=== PATIENT | male | born 1975 | race Caucasian/White ===

== ENCOUNTER 2024-01-14 21:12 | Inpatient (IN) | payer OTHER, SELFPAY ==
[2024-01-14 17:04] VITALS: BP 156/89
--- NOTE | 2024-01-14 17:19 | ED.GENMED ---
History of Present Illness
General
Chief Complaint: Chest Problem
Source: patient
Time Seen by Provider: 01/14/24 17:11
History of Present Illness
History of Present Illness:
48yoM with a history of polycystic kidney disease s/p renal transplant in 2017 on tacrolimus, mycophenolate, and prednisone presenting for evaluation of a fever. Patient has been having URI symptoms for the past 8 days or so including a cough. He
started to have chest pain today which is left-sided and radiates to the back as well as shortness of breath. He also developed a fever today with a Tmax of 101. He has a history of pneumonia and is worried that he has this again. No vomiting or
diarrhea. Urination has been normal.
Past History
Past History
ED Past Medical History: Other (Kidney transplant)
ED Past Surgical History: Other (Transplant kidney)
Social History
Tobacco: Non-smoker
Alcohol: None
Drug: None
Personal:
Living: with family
Employment: Employed
Family History
Family History: Other (Polycystic kidney)
Phy Exam
Physical Exam
Physical Exam:
Rigors noted on exam. Ill appearing, non-toxic
General Physical Exam
General age: appears stated age
General Skin: warm and dry
General Habitus: normal
General Mental: alert
ENT Exam
ENT Exam: normocephalic
Cardiovascular Exam
Cardiovascular Exam: no murmur and tachycardia
Pulmonary Exam
Pulmonary Exam: no respiratory distress, no stridor, no wheezing and other (Rales in L lower lung base)
Neurological Exam
Neurological Exam: alert
Margarette Coma Scale
Eye Opening: Spontaneous
Verbal Response: Oriented
Motor Response: Obeys Commands
GCS Total Score: 15
Skin Exam
Skin Exam: normal color and warm/dry
Psychiatric Exam
Psychiatric Exam: normal mood/affect
Sepsis
Sepsis Screening
Sepsis Assessment: Sepsis
Sepsis Screen
Sepsis Screen: Sepsis
Date: 01/14/24
Time: 19:05
Course
Orders/Labs/Results
Orders:
Orders
01/14/24 17:00
ECG [Electrocardiogram (*1)] Urgent
Reason for Study: Chest Pain
Other Reason for Exam: dyspnea
01/14/24 17:01
EKG- Treatment ONCE
01/14/24 17:18
Cardiac Monitoring- Treatment ONCE
Acetaminophen [Tylenol] 1,000 mg PO NOW STA
CR Chest - 2 Views Urgent
Comment:
Reason For Exam: Cough, fever
01/14/24 17:26
Blood Culture Q30M
TEJA Source: Blood/Venous
Specimen Description:
Blood Culture Q30M
TEJA Source: Blood/Venous
Specimen Description:
01/14/24 17:27
COVID-19 Antigen Urgent
Source: Nasal Swab
Complete Blood Count/With Diff Urgent
Comprehensive Metabolic Panel Urgent
Lactate Level [Lactic Acid] Urgent
Troponin I Urgent
Influenza A+B Rapid Molecular Urgent
TEJA Source: Nasal Swab
Specimen Description:
0.9% Sodium Chloride 500 ml [Nss] 500 ml IV BOLUS
01/14/24 17:59
0.9% Sodium Chloride 1000 ml [Nss] 1,000 ml IV BOLUS
01/14/24 18:42
Cefepime HCl [Maxipime] 2,000 mg IV NOW STA
Vancomycin [Vancocin] 2,000 mg 0.9% Sodium Chloride 500 ml [Nss] 500 ml IV NOW
Abnormal Lab Results
01/14/24
17:27
RBC 4.57 L 10^6/uL
(4.70-6.10)
MCH 31.5 H pg
(27.0-31.0)
Plt Count 129 L 10^3/uL
(130-400)
MPV 10.6 H fL
(7.4-10.4)
Absolute Neuts (auto) 9.3 H 10^3/uL
(1.4-6.5)
Absolute Lymphs (auto) 0.5 L 10^3/uL
(1.2-3.4)
Absolute Monos (auto) 0.8 H 10^3/uL
(0.1-0.6)
Neutrophils % 87.7 H %
(42.2-75.2)
Lymphocytes % 4.5 L %
(20.5-51.1)
Potassium 5.3 H mmol/L
(3.5-5.1)
BUN 26 H mg/dl
(9-20)
Creatinine 1.5 H mg/dL
(0.7-1.3)
Glucose 107 H mg/dl
(70-99)
Total Bilirubin 1.6 H mg/dl
(0.2-1.3)
01/14/24 17:27
01/14/24 17:27
Vital Signs
Initial and Last Documented VS:
Initial Vital Signs
Temp Pulse Resp BP Pulse Ox
100.5 F H 110 16 156/89 98
01/14/24 17:04 01/14/24 17:04 01/14/24 17:04 01/14/24 17:04 01/14/24 17:04
Last Documented Vital Signs
Temp Pulse Resp BP Pulse Ox
100.5 F H 91 22 156/89 96
01/14/24 17:04 01/14/24 17:37 01/14/24 17:37 01/14/24 17:04 01/14/24 17:37
MDM/Problems Addressed
Differential Diagnosis Includes:
48yoM here with fever, SOB, and L sided chest pain that began today. Started with URI symptoms 8 days ago. Hx of renal transplant. He is febrile to 100.5 on arrival with a HR of 110. He is having rigors on exam. +Rales in L lower lung base.
Differential diagnosis includes but is not limited to: viral illness, bronchitis, pneumonia, sepsis
Initial ED plan: Check septic workup including blood cultures, lactate, COVID/flu swab, and CXR. Will also check EKG and troponin. Tylenol and fluid bolus for symptoms.
*EKG
Interpreted by ED Provider?: Yes
EKG Intrepretation Date: 01/14/24
Heart Rate: 82
Rate: normal
Rhythm: sinus
[place]: normal axis
Interval: normal interval
QRS Pattern: normal QRS
Ischemia: no ischemia
*Critical Care Note
Total Time (30-74mins, 75-104mins- exclusive of procedures): Not Applicable
Update Note
Update Note:
White count is normal but left shift is noted. Lactate WNL. Creatinine 1.5 which is stable from last hospitalization in 2019. COVID/flu negative. No ischemic changes on EKG and troponin WNL. Opacity in the L mid/lower lung noted that is suspicious
for pneumonia. Given immunocompromised state, will admit. IV cefepime and vancomycin ordered.
ED Attending Note
-
Portions of this chart may have been created with voice recognition software.� Occasional wrong word or��sound alike� substitutions may have occurred due to the inherent limitations of voice recognition software.
Discharge Plan
Departure
Patient Disposition: Admit
Date of Disposition: 01/14/24
Time of Disposition: 19:03
Presentation/result/management discussed w/ accepting MD/DO: Hospitalist
Discharge Problem:
Pneumonia
Prescriptions:
No Action
prednisone 5 MG tablet
5 mg PO DAILY@0900
acetaminophen 325 MG tablet
650 mg PO Q4HPRN PRN (Reason: mild pain/fever)
mycophenolate mofetil 250 MG capsule
250 mg PO BID@0900,2100
tacrolimus 1 MG capsule
2 mg PO DAILY@899
tacrolimus 1 mg capsule
1 mg PO DAILY@2099
olmesartan 20 mg tablet
20 mg PO DAILY@899
cholecalciferol (vitamin D3) 25 mcg (1,000 unit) Tablet
25 mcg PO DAILY@2099
octreotide,microspheres [Sandostatin LAR Depot] 20 mg Suspension,Extended Rel Recon
40 mg IM Q4W
Referrals:
PRIVATE,PHYSICIAN [Family Provider] -
Interventions
Interventions:
*Risk Screen - Suicide Last Done: 01/14/24 17:04
*General Assessment Last Done: 01/14/24 17:04
*Neglect/Abuse Screening Last Done: 01/14/24 17:04
ED- Cardiac Assessment Last Done: 01/14/24 17:28
ED- Pulmonary Assessment Last Done: 01/14/24 17:28
Discharge Date and Time
Print Language: SAUDI ARABIAN
[2024-01-14] MEDS: TYLENOL 1000 MG PO (17:28)
[2024-01-14 17:32] VITALS: BMI 23.2
[2024-01-14 17:46] LABS: % Basophils 0.2 % (0-2); % Eosinophils 0.2 % (0-6); % Immature Granulocytes 0.3 % (0-0.5); % Lymphocytes 4.5 % (20.5-51.1); % Monocytes 7.1 % (1.7-9.3); % Neutrophils 87.7 % (42.2-75.2); Absolute Lymphocytes 0.5 10^3/uL (1.2-3.4); Absolute Monocytes 0.8 10^3/uL (0.1-0.6); Absolute Neutrophils 9.3 10^3/uL (1.4-6.5); Hematocrit 41.3 % (39.0-52.0); Hemoglobin 14.4 g/dL (13.0-18.0); Mean Corp Hgb Conc. 34.9 g/dL (33.0-37.0); Mean Corpuscular Hgb 31.5 pg (27.0-31.0); Mean Corpuscular Volume 90.4 fL (80.0-94.0); Mean Platelet Volume 10.6 fL (7.4-10.4); Nucleated Red Blood Cells % 0 % (-); Platelet Count 129 10^3/uL (130-400); Red Blood Cell Count 4.57 10^6/uL (4.70-6.10); Red Cell Dist. Width 12.2 % (11.5-14.5); White Blood Cell Count 10.5 10^3/uL (4.8-10.8)
[2024-01-14 17:54] LABS: Lactic Acid 1.5 mmol/L (0.7-2.0)
[2024-01-14 17:57] LABS: ALT (SGPT) 21 U/L (0-50); AST (SGOT) 27 U/L (17-59); Albumin 4.6 g/dl (3.5-5.0); Alkaline Phosphatase 112 U/L (38-126); Blood Urea Nitrogen 26 mg/dl (9-20); Calcium 9.7 mg/dl (8.4-10.2); Carbon Dioxide 24 mmol/L (22-30); Chloride 102 mmol/L (98-107); Estimated Creatinine Clearance 76 ml/min; Glucose 107 mg/dl (70-99); Potassium 5.3 mmol/L (3.5-5.1); Sodium 139 mmol/L (135-145); Total Bilirubin 1.6 mg/dl (0.2-1.3); Total Protein 7.6 g/dl (6.3-8.2); eGFR 56.37
[2024-01-14 18:04] LABS: COVID-19 Antigen Negative (Negative)
[2024-01-14 18:06] LABS: Troponin I < 0.012 ng/ml
[2024-01-14] MEDS: NSS 1000 IV ×2 (18:17→22:06)
[2024-01-14] MEDS: MAXIPIME 2000 MG IV (19:50)
--- NOTE | 2024-01-14 20:06 | HPS.HSE ---
Family Physician
-
Family Physician: PHYSICIAN PRIVATE
Chief Complaint
-
Shortness of breath and chest pain
History of Present Illness
This is a 48-year-old with a history of hypertension and polycystic kidney disease status post kidney transplant in 2017 on antirejection medications who presents to the emergency department with worsening shortness of breath and a fever after about
a week of upper respiratory symptoms.
Patient reported that he has been having rhinorrhea and nonproductive cough for several days which appeared to have been improving up until today. Today he suddenly developed severe fatigue felt febrile and had persistent chest discomfort which he
describes as pain in the bilateral subcostal areas. The pain is present even without coughing. He reports that he still does not have a productive cough. He however has dyspnea on exertion. He denies any lower extremity swelling. He denies any
palpitations. He denies any lightheadedness or dizziness. Oral intake has been decreased slightly. He denies any nausea vomiting or diarrhea. No known sick contacts. No recent travels.
In the ED patient was febrile to 100.5 �F, blood pressure was stable at 136/89 and was at 96% on room air. His chest x-ray shows a opacity in the left lower lobe concerning for pneumonia. There was no leukocytosis. He does have a known
thrombocytopenia with a platelet count of 129 similar to prior. Chemistries were stable with a creatinine of 1.5 unchanged from prior. K was 5.3. COVID and influenza negative.
Medical History
Past Medical History
Past Medical History: Reports HTN and Renal Failure (Polycystic kidney disease)
Additional Past Medical History:
Polycystic liver
Past Surgical History: Reports Other (Living donor Kidney Tx 2017, removal of [place] kidneys)
Social History
Tobacco: Non-smoker
Alcohol: None
Drug: None
Personal:
Living: With Family
Employment: Employed
Family History
Family History: Other (Polycystic kidney disease)
Allergies / Home Medications
Allergies reflects when Allergies were last updated in [facility].
Home Medications with original date entered in [facility]
Allergy/Medication List:
Allergies
Allergy/AdvReac Type Severity Reaction Status Date / Time
lisinopril Allergy Unknown Verified 03/30/19 19:50
Home Medications
acetaminophen 325 mg tablet 650 mg PO Q4HPRN PRN mild pain/fever 03/30/19
mycophenolate mofetil 250 mg capsule 250 mg PO BID@09,209903/30/19
prednisone 5 mg tablet 5 mg PO DAILY@89903/30/19
tacrolimus 1 mg capsule, immediate-release 2 mg PO DAILY@89903/30/19
cholecalciferol (vitamin D3) 25 mcg (1,000 unit) tablet 25 mcg PO DAILY@209901/14/24
octreotide,microspheres 20 mg intramuscular susp, extended release (Sandostatin LAR Depot) 40 mg IM Q4W 01/14/24
olmesartan 20 mg tablet 20 mg PO DAILY@89901/14/24
tacrolimus 1 mg capsule, immediate-release 1 mg PO DAILY@209901/14/24
Review of Systems
-
History Source: Patient
Constitutional: Reports Fever and Fatigue
EENT: Reports No Symptoms
Respiratory: Reports No Symptoms
Cardiac: Reports No Symptoms
Abdomen/GI: Reports No Symptoms
: Reports No Symptoms
Musculoskeletal: Reports No Symptoms
Skin: Reports No Symptoms
Neurological: Reports No Symptoms
Endocrine: Reports No Symptoms
Hematologic/Lymphatic: Reports No Symptoms
Psych: Reports No Symptoms
Physical Exam
Vital Signs
Vital Signs
Temp Pulse Resp BP Pulse Ox
100.5 F H 80 21 156/89 98
01/14/24 17:04 01/14/24 19:45 01/14/24 19:45 01/14/24 17:04 01/14/24 19:45
Physical Exam
General: Well Developed, Well Nourished, No Apparent Distress, Comfortable and Fever
HEENT: NormoCephalic, Anicteric, Moist mucous membranes and Atraumatic
Respiratory: Crackles (left basilar crackles)
Cardiac: S1/S2 and Regular Rhythm
GI: Soft, Non Tender, Non Distended and Normal Bowel Sounds
Rectal: Brown
Genito-urinary: Deferred by me
Musculoskeletal: No Clubbing, No Cyanosis and No Edema
Skin: Warm
Neuro: AO x 3
Hematologic/Lymphatic: No Lymphadenopathy
Psych: Calm
Laboratory Results
-
01/14/24 17:27
01/14/24 17:27
Laboratory Results
Lactic Acid 1.5 mmol/L (0.7-2.0) 01/14/24 17:27
Total Bilirubin 1.6 mg/dl (0.2-1.3) H 01/14/24 17:27
AST 27 U/L (17-59) 01/14/24 17:27
ALT 21 U/L (0-50) 01/14/24 17:27
Alkaline Phosphatase 112 U/L (38-126) 01/14/24 17:27
Troponin I < 0.012 ng/ml 01/14/24 17:27
Data Reviewed
-
Diagnostic Radiology: Image Personally Visualized and interpreted and Report Reviewed by me
Lab Data: Labs Reviewed by me
Old Records: Reviewed
Impression/Plan
-
IMPRESSION:
48-year-old with renal failure status post living donor transplant 2017 on tacrolimus CellCept and prednisone presents to the emergency department with fevers and shortness of breath found to have a left lower lobe pneumonia. Nausea requirement at
this time. Hemodynamically stable.
PLAN:
1. PNA - Complex PNA due to immunosuppression. No recent hospitalizations or abx use. No prior cultures.
- admit to med/surg
- blood cultures sent, check legionella ag
- IV fluids o/n
- MRSA testing
- continue Vanc pending mrsa swab
- cefepime 2g q 12 for now
- incentive spirometry
- ID consult
2. Renal Failure - PKD s/p LD KTx 2017. Cr 1.5 which is baseline for him.
- Continue tac 2 am 1 pm
- Continue cellcept 250 bid for now, consider d/c if decompensating
- continue prednisone 5 daily
- renal consult.
3.Hyperkalemia - MIld elevation in K to 5.3, on Olmesartan and Tacrolimus, baseline around 4.8
- IV fluids overnight for now and repeat in AM
- low K diet
4. HTN
- continue olmesartan 20 for now
DVT PPX - lovenox sq
Code status - full code
[2024-01-14] MEDS: VANCOCIN 540 MG IV (20:42)
[2024-01-14 21:44] VITALS: BP 136/78
[2024-01-14 21:46] VITALS: BMI 23.2
--- NOTE | 2024-01-14 21:55 | PHA.VAN.IN ---
Assessment
- Assessment
Renal Function: Other (04/02/19 SCR = 1.9)
Concomitant Antimicrobials: CEFEPIME
- Previous Dosing Experience
Previous Regimen: NONE
Plan
- Plan
Initial / Loading Dose: 2GM
Maintenance Regimen: DOSING BY RANDOM LEVELS
Monitoring: RANDOM VANCOMYCIN LEVEL 01/15/24 AM
Pharmacokinetics Vancomycin I
- -
Patient Age: 48
Patient Sex: Male
Vancomycin Day #: 1
Indication: Pulmonary/Respiratory
Requesting Provider: MILY
Height / Weight:
Height 6 ft 6 in
Actual Weight 91.081 kg
Pertinent Past Medical History: KIDNEY TRANSPLANT 2016
- Vital Signs / Lab Results
Temp Pulse Resp BP Pulse Ox
97.7 F 77 18 136/78 96
01/14/24 21:44 01/14/24 21:44 01/14/24 21:44 01/14/24 21:44 01/14/24 21:44
Lab Results - Hematology
01/14/24
17:27
WBC 10.5
Lab Results - Chemistry
01/14/24
17:27
BUN 26 H
Creatinine 1.5 H
Estimated Creat Clear 76
Albumin 4.6
01/14/24
17:27
Lactic Acid 1.5
Microbiology Results
01/14/24 17:27 Influenza Types A & B (JOHN) - Final
Nasal Swab Negative for Influenza A & B, NAAT
Negative results must be combined with clinical observations
and patient history.
Nucleic Acid Amplification test (NAAT)performed on the
[employer] platform.
[2024-01-14] MEDS: VITAMIN D3 (cholecalciferol) PO (22:05)
[2024-01-14 23:25] VITALS: BP 116/68
--- NOTE | 2024-01-15 01:36 | PTCARENOTE ---
Received pt from ED via stretcher with belongings. Medsurg orders. Afebrile, HR 77, RR 18, BP 136/78, pox 96% room air. No c/o pain.
IV Vancomycin infusing through RAC. PMH, medications and plan of care reviewed by this RN and pt. Pt oriented to room. Call marie within reach.
[2024-01-15 07:00] VITALS: BP 130/82
[2024-01-15 07:03] LABS: Vancomycin Random 16.1 ug/ml
[2024-01-15 07:09] LABS: Hematocrit 35.9 % (39.0-52.0); Hemoglobin 12.3 g/dL (13.0-18.0); Mean Corp Hgb Conc. 34.3 g/dL (33.0-37.0); Mean Corpuscular Hgb 31.8 pg (27.0-31.0); Mean Corpuscular Volume 92.8 fL (80.0-94.0); Red Blood Cell Count 3.87 10^6/uL (4.70-6.10); White Blood Cell Count 7.3 10^3/uL (4.8-10.8)
[2024-01-15 07:15] LABS: Blood Urea Nitrogen 24 mg/dl (9-20); Calcium 8.5 mg/dl (8.4-10.2); Carbon Dioxide 23 mmol/L (22-30); Chloride 107 mmol/L (98-107); Estimated Creatinine Clearance 81 ml/min; Glucose 111 mg/dl (70-99); Potassium 4.8 mmol/L (3.5-5.1); Sodium 140 mmol/L (135-145); eGFR > 60.00
[2024-01-15] MEDS: DELTASONE 5 MG PO (07:40)
[2024-01-15] MEDS: BENICAR 20 MG PO (07:40)
[2024-01-15] MEDS: PROGRAF 2 MG PO (07:40)
[2024-01-15] MEDS: MAXIPIME 2000 MG IV (07:42)
[2024-01-15] MEDS: STERILE WATER FOR INJECTION 10 ML IV ×2 (07:43→17:21)
[2024-01-15] MEDS: CELLCEPT 250 MG PO ×2 (07:43→18:37)
--- NOTE | 2024-01-15 07:55 | PHA.VAN.FU ---
Vancomycin Assessment / Plan
- Assessment
Renal Function: Stable (1.5- 1.4)
WBC's are: WNL
In the past 24 hrs, patient has been: Febrile (100.5 01/13 @ 17:04)
Concomitant Antimicrobials: cefepime
- Assessment - Therapeutic Drug Monitoring
Random Level: 16.1 ~ 10 hours post initial 2000 mg LD
- Dosing Plan
Continue: dosing by random level
Dosing by Level: Re-dose today (1250 mg x 1 (~14 mg/kg) to be given at noon today)
- Monitoring Plan
Random Level: repeat random level AM 01/15
- Follow Up
Pharmacy will continue to follow.
Vancomycin Follow UP
- -
Patient Age: 48
Patient Sex: Male
Vancomycin Day #: 2
Indication: Pulmonary/Respiratory
Requesting Provider: MILY
Height / Weight:
Height 6 ft 6 in
Actual Weight 91.081 kg
Pertinent Past Medical History: KIDNEY TRANSPLANT 2016
- Vital Signs / Lab Results
Temp Pulse Resp BP Pulse Ox
99.0 F 72 17 116/68 97
01/14/24 23:25 01/14/24 23:25 01/14/24 23:25 01/14/24 23:25 01/14/24 23:25
Lab Results - Hematology
01/14/24 01/15/24
17:27 06:39
WBC 10.5 7.3
Lab Results - Chemistry
01/14/24 01/15/24
17:27 06:39
BUN 26 H 24 H
Creatinine 1.5 H 1.4 H
Estimated Creat Clear 76 81
Albumin 4.6
01/14/24
17:27
Lactic Acid 1.5
Microbiology Results
01/14/24 17:27 Influenza Types A & B (JOHN) - Final
Nasal Swab Negative for Influenza A & B, NAAT
Negative results must be combined with clinical observations
and patient history.
Nucleic Acid Amplification test (NAAT)performed on the
[employer] platform.
Therapeutic Drug Monitoring
Random Vancomycin 16.1 ug/ml 01/15/24 06:39
[2024-01-15 08:12] LABS: Platelet Count 93 10^3/uL (130-400)
--- NOTE | 2024-01-15 11:24 | W.PN.HOSP.TC ---
Today's Communication/Plan
-
Monitor vital signs see plan
Continue with antibiotics
MRSA pending
Follow blood culture
Continue with immunosuppressive medications
Monitor BMP
Follow fever curve
Assessment / Plan
Assessment / Plan
General: Well Developed, Well Nourished, No Apparent Distress, Comfortable and Fever
HEENT: NormoCephalic, Anicteric, Moist mucous membranes and Atraumatic
Respiratory: Crackles (left basilar crackles)
Cardiac: S1/S2 and Regular Rhythm
GI: Soft, Non Tender, Non Distended and Normal Bowel Sounds
Musculoskeletal: No Edema
Skin: Warm
Neuro: AO x 3
Psych: Calm
PNA - Complex PNA due to immunosuppression. No recent hospitalizations or abx use. No prior cultures.
sepsis (fever, tachypnea) 2/2 above
- blood cultures sent, check legionella ag neg; flu, covid neg
CXR with left mid/lower lung pneumonia
cw vanc and cefipime for now; MRSA pending
- incentive spirometry
- ID following
hx of Renal Failure - PKD s/p LD KTx 2017. Cr 1.5 which is baseline for him.
- Continue tac 2 am 1 pm
- Continue cellcept 250 bid for now, consider holding if decompensating
- continue prednisone 5 daily
follows up with nephrology [facility]
tac level pending
Hyperkalemia - MIld elevation in K to 5.3 on admission, on Olmesartan and Tacrolimus
now improving; monitor
Thrombocytopenia
monitor
HTN
- continue olmesartan 20 for now
DVT PPX - lovenox sq
Code status - full code
Anticipated Discharge: 24 - 48 hours
Subjective/Interval History
-
Date of Service: January 15, 2024
denies pain
Objective Data
-
Labs:
Laboratory Results
01/15/24
06:39
WBC 7.3
Hgb 12.3 L
Hct 35.9 L
Plt Count 93 L D
Sodium 140
Potassium 4.8
Chloride 107
Carbon Dioxide 23
BUN 24 H
Creatinine 1.4 H
Glucose 111 H
Calcium 8.5
Vital Signs:
Vital Signs
Temp Pulse Resp BP Pulse Ox
98.6 F 73 16 130/82 93
01/15/24 07:00 01/15/24 07:00 01/15/24 07:00 01/15/24 07:00 01/15/24 07:00
I&O
01/14/24 01/15/24 01/16/24
06:59 06:59 06:59
Intake Total 1530 / 1530
Balance 1530 / 1530
--- NOTE | 2024-01-15 11:47 | CON.ID ---
Consultation
-
Date/Time Consultation Requested: 01/14/2024 2202
Date/Time Consultation Performed: 01/15/2024 1130
Requesting Provider: Dr Marin
Performing Provider: Dr. Wilcox
Reason for Consultation: Pneumonia
Chief Complaint / Past History
History of Present Illness
Garland Beasley is a 48-year-old man with a significant past medical history of PCKD and renal transplant (2016) being evaluated regarding pneumonia. History is obtained from chart review, along with patient interview.
The patient reports that he was in his usual state of health until approximately 8 days ago when he began to have URI symptomatology with a noted cough. He notes that his child recently also had symptomatology of an upper respiratory tract
infection, but is now fine.
Yesterday he developed some pleuritic type chest pain, along with increasing shortness of breath and some chills. He reports that he may have been feeling quite ill over the past week, but has had deadlines at work and thus he 'powered through'.
He notes scant spit, and possibly it was yellowish or reddish in color. He denies any headache. At present he notes only mild chest pain with some respirations. He denies any abdominal pain, nausea, vomiting or diarrhea.
He reports no issues in regards to his transplant, and is closely followed by his transplant surgeon (Dr. Mcpherson) at [facility].
Past History
Additional Past Medical History:
PCKD
Additional Past Surgical History:
Renal transplant (2017)
Allergy History:
lisinopril Allergy (Verified 03/30/19 19:50)
Unknown
Medications Reviewed: Yes
Current Antibiotics:
Cefepime
Vancomycin
Social History
Tobacco: Non-Smoker
Alcohol: None
Drug: None
Personal:
Living: With Family
Employment: Employed
Family History
Family History: Not Pertinent
Review of Systems
Vital Signs
Temp Pulse Resp BP Pulse Ox
98.6 F 73 16 130/82 93
01/15/24 07:00 01/15/24 07:00 01/15/24 07:00 01/15/24 07:00 01/15/24 07:00
Physical Exam
Physical Exam
Constitutional: No Acute Distress, Well Developed, Comfortable and Non-toxic
Head: Normocephalic
Eyes: Pupils Equal, Pupils Round, No Conjunctival Hemorrhage and Sclera Anicteric
Oral: No Thrush and No Ulcers
Cardiovascular: Regular Rate and S1/S2; Negative S3/S4
Pulmonary: Clear; Negative Wheezes, Rales or Rhonchi
Gastrointestinal: Soft, Non Tender and Non Distended
Extremities: Negative Edema, Cyanosis or Erythema
Skin: Warm and Dry; Negative Rash or Jaundice
Neurological: Awake and Alert
Psychological: Calm
Lab / Diagnostic Study Results
01/15/24 06:39
01/15/24 06:39
Abs Immat Gran (auto) 0.0 10^3/uL (0-0.05) 01/14/24 17:27
Absolute Neuts (auto) 9.3 10^3/uL (1.4-6.5) H 01/14/24 17:27
Absolute Lymphs (auto) 0.5 10^3/uL (1.2-3.4) L 01/14/24 17:27
Absolute Monos (auto) 0.8 10^3/uL (0.1-0.6) H 01/14/24 17:27
Absolute Basos (auto) 0.0 10^3/uL (0-0.2) 01/14/24 17:27
Immature Gran % 0.3 % (0-0.5) 01/14/24 17:27
Neutrophils % 87.7 % (42.2-75.2) H 01/14/24 17:27
Lymphocytes % 4.5 % (20.5-51.1) L 01/14/24 17:27
Monocytes % 7.1 % (1.7-9.3) 01/14/24 17:27
Eosinophils % 0.2 % (0-6) 01/14/24 17:27
Basophils % 0.2 % (0-2) 01/14/24 17:27
Lactic Acid 1.5 mmol/L (0.7-2.0) 01/14/24 17:27
Procalcitonin 0.90 ng/ml (0.0-0.25) H 01/15/24 06:39
Microbiology Results
Micro:
01/15/24 00:54 Legionella Urinary Antigen - Final
Urine Negative for Legionella pneumophila Serogroup 1 antigen.
A negative result does not rule out the possiblity of
Legionella infection due to other serogroups or species of
Legionella. Clinical correlation is recommended.
01/15/24 00:54 MRSA Screen - Pending
Nose
01/14/24 17:27 Influenza Types A & B (JOHN) - Final
Nasal Swab Negative for Influenza A & B, NAAT
Negative results must be combined with clinical observations
and patient history.
Nucleic Acid Amplification test (NAAT)performed on the
[employer] platform.
01/14/24 17:26 Blood Culture - Pending
Blood/Venous
01/14/24 17:26 Blood Culture - Pending
Blood/Venous
Imaging:
01/14/2024 CXR (2 view): Low lung volumes are noted with an opacity projecting over the left mid/lower lung. No pleural effusion or pneumothorax. Please see full dictation for additional detail. Film personally viewed.
Assessment / Plan
Suspected pneumonia
Upper respiratory tract infection
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
Hx PCKD with renal transplant (2017)
Recommendations:
Consolidate antibiotics to ceftriaxone and doxycycline.
Follow white count temperature curve. May be able to transition to oral cefdinir in the next 24 to 48 hours.
Follow white count and temperature curve.
Continue with supportive measures.
[2024-01-15] MEDS: VANCOCIN 275 MG IV (12:05)
[2024-01-15] MEDS: VIBRAMYCIN 100 MG PO ×2 (12:06→19:58)
--- NOTE | 2024-01-15 14:51 | CM ---
Reviewed chart, met with patient to obtain information for assessment. Patient stated that he lives in a two story home with his and three children who are 11, 8, and 6. Patient is independent with his ADLs, personal care, dressing and bathing.
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 Patient denied any DME. He can drive and can get to his appointments and does all of his shopping.
Patient has never had VN services.
He has a prescription plan and uses, [facility] in [place] for all of his medications.
Patient's PCP is, not listed.
Patient stated that functionally, he feels that he is at baseline and would like to return home when he is stable for discharge.
Plan: Case management will continue to follow and assist with discharge planning. Home when cleared for discharge.
[2024-01-15 15:00] VITALS: BP 118/74
[2024-01-15] MEDS: ROCEPHIN 1000 MG IV (17:21)
[2024-01-15] MEDS: PROGRAF 1 MG PO (18:38)
[2024-01-15] MEDS: VITAMIN D3 (cholecalciferol) 25 MCG PO (18:42)
[2024-01-15 23:00] VITALS: BP 119/75
[2024-01-16 07:00] VITALS: BP 118/78
[2024-01-16] MEDS: VIBRAMYCIN 100 MG PO (07:32)
[2024-01-16] MEDS: PROGRAF 2 MG PO (07:32)
[2024-01-16] MEDS: DELTASONE 5 MG PO (07:32)
[2024-01-16] MEDS: BENICAR 20 MG PO (07:32)
[2024-01-16] MEDS: CELLCEPT 250 MG PO (07:33)
[2024-01-16 09:13] LABS: % Basophils 0.1 % (0-2); % Eosinophils 1.4 % (0-6); % Immature Granulocytes 0.4 % (0-0.5); % Lymphocytes 7.9 % (20.5-51.1); % Monocytes 7.1 % (1.7-9.3); % Neutrophils 83.1 % (42.2-75.2); Absolute Eosinophils 0.1 10^3/uL (0-0.7); Absolute Lymphocytes 0.6 10^3/uL (1.2-3.4); Absolute Monocytes 0.5 10^3/uL (0.1-0.6); Hematocrit 36.1 % (39.0-52.0); Hemoglobin 12.3 g/dL (13.0-18.0); Mean Corp Hgb Conc. 34.1 g/dL (33.0-37.0); Mean Corpuscular Hgb 31.9 pg (27.0-31.0); Mean Corpuscular Volume 93.8 fL (80.0-94.0); Mean Platelet Volume 10.6 fL (7.4-10.4); Nucleated Red Blood Cells % 0 % (-); Platelet Count 97 10^3/uL (130-400); Red Blood Cell Count 3.85 10^6/uL (4.70-6.10); White Blood Cell Count 7.2 10^3/uL (4.8-10.8)
[2024-01-16 09:18] LABS: Blood Urea Nitrogen 23 mg/dl (9-20); Calcium 8.7 mg/dl (8.4-10.2); Carbon Dioxide 25 mmol/L (22-30); Chloride 103 mmol/L (98-107); Estimated Creatinine Clearance 81 ml/min; Glucose 199 mg/dl (70-99); Potassium 4.6 mmol/L (3.5-5.1); Sodium 139 mmol/L (135-145); eGFR > 60.00
--- NOTE | 2024-01-16 10:39 | W.PN.HOSP.TC ---
Today's Communication/Plan
-
Monitor vital signs
see plan
On room air, feeling better
Discharge on cefdinir and Doxy
Discussed with infectious disease
Time of discharge 38 minutes
Assessment / Plan
Assessment / Plan
General: Well Developed, Well Nourished, No Apparent Distress, Comfortable and Fever
HEENT: NormoCephalic, Anicteric, Moist mucous membranes
Respiratory: CTA,no wheezing
Cardiac: S1/S2 and Regular Rhythm
GI: Soft, Non Tender, Non Distended and Normal Bowel Sounds
Musculoskeletal: No Edema
Neuro: AO x 3
Psych: Calm
PNA - Complex PNA due to immunosuppression. No recent hospitalizations or abx use. No prior cultures.
sepsis (fever, tachypnea) 2/2 above
- blood cultures NGTD, legionella ag neg; flu, covid neg
CXR with left mid/lower lung pneumonia
On ceftriaxone and doxycycline, discussed with ID. Will discharge on cefdinir and Doxy
- incentive spirometry
- ID following
on RA
hx of Renal Failure - PKD s/p LD KTx 2017. Cr 1.5 which is baseline for him.
- Continue tac 2 am 1 pm
- Continue cellcept 250 bid for now, consider holding if decompensating
- continue prednisone 5 daily
follows up with nephrology [facility]
tac level pending
Hyperkalemia - Mild elevation in K to 5.3 on admission, on Olmesartan and Tacrolimus
now improving; monitor
Thrombocytopenia
monitor
HTN
- continue olmesartan 20 for now
DVT PPX - lovenox sq
Code status - full code
Anticipated Discharge: Today
Subjective/Interval History
-
Date of Service: January 16, 2024
denies pain,sob
Objective Data
-
Labs:
Laboratory Results
01/16/24
08:50
WBC 7.2
Hgb 12.3 L
Hct 36.1 L
Plt Count 97 L
Sodium 139
Potassium 4.6
Chloride 103
Carbon Dioxide 25
BUN 23 H
Creatinine 1.4 H
Glucose 199 H
Calcium 8.7
Vital Signs:
Vital Signs
Temp Pulse Resp BP Pulse Ox
99.1 F 70 14 118/78 95
01/16/24 07:00 01/16/24 07:00 01/16/24 07:00 01/16/24 07:00 01/16/24 07:00
I&O
01/15/24 01/16/24 01/17/24
06:59 06:59 06:59
Intake Total 1530 / 1530 1680 / 1680
Balance 1530 / 1530 1680 / 1680
--- NOTE | 2024-01-16 10:49 | W.DCSUMMARY ---
Discharge Summary
Discharge Data
Date of Admission: 01/14/24
Date of Discharge: 01/16/24
-
Pending Results: No
Hospital Course
48-year-old male with past medical history of polycystic kidney disease status post kidney transplant on immune O suppressants, hypertension came to the hospital with sepsis secondary to complex pneumonia. Patient was initially started on IV
antibiotics. Patient was seen by infectious disease for hospitalization. Once patient symptoms continue to improve, he was then transition to oral antibiotics. He was on room air prior to discharge. Since his fever resolved and he remained on
room air, he was done deemed stable to be discharged home with instructions to follow-up with all the physicians outpatient.
Discharge Plan
-
Patient Disposition: Home (Routine Discharge)
Discharge Diagnosis/Procedures: Complex Pneumonia in immunocompromised host
hx of renal transplant
Thrombocytopenia
Diet: As tolerated
Activity: As tolerated
Driving Restrictions: As prior to admission
Bathing Restrictions: None
Blood Work: CBC next week with primary care provider
Referrals:
PRIVATE,PHYSICIAN [Family Provider] - in less than 1 week
Prescriptions:
New
doxycycline hyclate 100 mg Capsule
100 mg PO BID Qty: 12 0RF
cefdinir 300 mg capsule
300 mg PO BID Qty: 12 0RF
Probiotic 10 billion cell capsule
10,000 mmu cells PO DAILY Qty: 10 0RF
guaifenesin 1,200 mg tablet extended release 12hr
1,200 mg PO BID Qty: 14 0RF
Continued
prednisone 5 MG tablet
5 mg PO DAILY@0900
acetaminophen 325 MG tablet
650 mg PO Q4HPRN PRN (Reason: mild pain/fever)
mycophenolate mofetil 250 MG capsule
250 mg PO BID@0900,2100
tacrolimus 1 MG capsule
2 mg PO DAILY@0900
tacrolimus 1 mg capsule
1 mg PO DAILY@2100
olmesartan 20 mg tablet
20 mg PO DAILY@0900
cholecalciferol (vitamin D3) 25 mcg (1,000 unit) Tablet
25 mcg PO DAILY@2100
octreotide,microspheres [Sandostatin LAR Depot] 20 mg Suspension,Extended Rel Recon
40 mg IM Q4W
Discharge Orders:
Discharge Patient (As Directed); Ordered 01/16/24
Ordered By: Dwaine Bishop
Discharge Date and Time
Discharge Date/Time: 01/16/24 11:48
Print Language: SERBIAN
[2024-01-16 11:31] VITALS: BP 124/76
== END 2024-01-16 11:48 | disposition home or self-care (01) | DRG 871 ==
LOC: 3 WEST ACU 21:12
PROVIDERS: Physician Assistant; ADMITTING PHYSICIAN Internal Medicine; ATTENDING PHYSICIAN Internal Medicine; CONSULT PHYSICIAN Internal Medicine Infectious Disease; EMERGENCY PHYSICIAN Emergency Medicine
DX: A41.9 Sepsis, unspecified organism (principal); J18.8 Other pneumonia, unspecified organism; D84.821 Immunodeficiency due to drugs; Z94.0 Kidney transplant status; I10 Essential (primary) hypertension; D69.59 Other secondary thrombocytopenia; E87.5 Hyperkalemia; Z79.624 Long term (current) use of inhibitors of nucleotide synthesis; Z79.52 Long term (current) use of systemic steroids; Z88.8 Allergy status to other drugs, medicaments and biological substances; Z20.822 Contact with and (suspected) exposure to COVID-19
CPT/HCPCS: 71046; 80048; 80053; 80197; 80202; 83605; 84145; 84484; 85025; 85027; 87040; 87070; 87449; 87502; 87811; 93005; 96361; 96365; 96366; 96375; 99285